=== PATIENT | female | born 1990 | race Caucasian/White ===

== ENCOUNTER 2017-09-11 19:50 | Emergency (ER) | payer SELFPAY ==
[2017-09-11] MEDS ORDERED: Sodium Chloride 0.9% 1,000 ML ONE (20:06)
[2017-09-11] MEDS ORDERED: Morphine 4 MG/ML Carpuject ONE (20:06)
[2017-09-11] MEDS ORDERED: Ondansetron HCl/PF 4 MG/2 ML Vial ONE (20:06)
[2017-09-11] MEDS ORDERED: Promethazine HCl 25 MG/ML VIAL ONE (20:16)
[2017-09-11 20:19] LABS: #Basophils 0.1 thou/uL (0.0-0.2); #Eosinphils 0.2 thou/uL (0.0-0.7); #Lymphocytes 1.9 thou/uL (1.20-3.40); #Monocytes 0.7 thou/uL (0.11-0.59); %Basophils 0.5 % (0.0-1.0); %Eosinophils 1.3 % (0.0-10.0); %Lymphocytes 13.8 % (21.0-51.0); %Neutrophils 79.4 % (42.0-75.0); Hemoglobin 14.7 g/dL (12.0-16.0); Mean Corpuscular HGB CONC 32.5 g/dL (32.0-36.0); Mean Corpuscular Hemoglobin 28.5 pg (27.0-31.0); Mean Corpuscular Volume 87.7 fl (81.0-99.0); Mean Platelet Volume 8.9 fL (7.4-10.4); Platelet Count 304 thou/uL (130-400); RBC Distribution Width 11.7 % (11.5-14.5); Red Blood Cell (RBC) Count 5.14 mill/uL (4.20-5.40); White Blood Cell (WBC) Count 13.9 thou/uL (4.8-10.8)
[2017-09-11 20:27] LABS: Bilirubin Negative (Negative); Blood, Urine Negative (Negative); Clarity Clear (Clear); Glucose, Urine (Dipstick) Negative (Negative); Leukocyte Negative (Negative); Nitrite Negative (Negative); Protein, Urine (Dipstick) Negative (Neg-Trace); Urobilinogen 0.2 mg/dL (0.2-1.0)
[2017-09-11 20:28] LABS: Specific Gravity, Urine 1.006 (1.005-1.030)
[2017-09-11 20:31] LABS: Anion Gap 15 mmol/L (10-20); BUN (Urea Nitrogen) 7 mg/dL (7.0-18.7); Calc. Creatinine Clearance 0 mL/min (70-130); Calcium 10.2 mg/dL (7.8-10.44); Carbon Dioxide 24 mmol/L (22-29); Chloride 105 mmol/L (98-107); Estimated GFR-MDRD 84; Glucose 103 mg/dL (70-105); Potassium 3.8 mmol/L (3.5-5.1); Sodium 140 mmol/L (136-145)
[2017-09-11 20:39] LABS: BHCG - Serum Negative (NEGATIVE); Pregs Control Bar Appear? YES (CONTROL BAR)
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
== END 2017-09-11 21:53 | disposition home or self-care (01) ==
LOC: NAV ERS 19:50
DX: T74.11XA Adult physical abuse, confirmed, initial encounter (principal); S31.159A Open bite of abdominal wall, unspecified quadrant without penetration into peritoneal cavity, initial encounter; S13.9XXA Sprain of joints and ligaments of unspecified parts of neck, initial encounter; S09.90XA Unspecified injury of head, initial encounter; F41.9 Anxiety disorder, unspecified; F32.9 Major depressive disorder, single episode, unspecified; F17.210 Nicotine dependence, cigarettes, uncomplicated; Y04.1XXA Assault by human bite, initial encounter
CPT/HCPCS: 70450; 72125; 80048; 81003; 84703; 85025; 96361; 96374; 96375; J2270; J2405; J2550; J7050

== ENCOUNTER 2017-09-24 21:09 | Emergency (ER) | payer SELFPAY ==
[2017-09-24] MEDS ORDERED: Ketorolac Tromethamine 30 MG/ML VIAL ONE (21:53)
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
[2017-09-25 12:37] LABS: HIV (1/2) Antibody/Antigen Non-Reactive (NonReactive); HIV 1/2 INDEX 0.24 S/CO (<1.00)
== END 2017-09-24 23:04 | disposition home or self-care (01) ==
LOC: NAV ERS 21:09
DX: S39.92XA Unspecified injury of lower back, initial encounter (principal); S29.9XXA Unspecified injury of thorax, initial encounter; B34.9 Viral infection, unspecified; F41.9 Anxiety disorder, unspecified; F32.9 Major depressive disorder, single episode, unspecified; F17.210 Nicotine dependence, cigarettes, uncomplicated; Y04.2XXA Assault by strike against or bumped into by another person, initial encounter
CPT/HCPCS: 87389; 96372; J1885

== ENCOUNTER 2017-10-20 23:12 | Emergency (ER) | payer SELFPAY ==
[2017-10-21] LABS: Bilirubin Negative (Negative); Blood, Urine Trace (Negative); Clarity Clear (Clear); Glucose, Urine (Dipstick) Negative (Negative); Leukocyte Small (Negative); Nitrite Negative (Negative); Protein, Urine (Dipstick) Negative (Neg-Trace); Urobilinogen 0.2 mg/dL (0.2-1.0); pH, Urine 6.5 (5.0-9.0)
[2017-10-21 00:07] LABS: Pregnancy Test - Urine (BHCG) Negative (Negative); Pregu Control Background? CLEAR/WHITE (CLR/WHITE); Pregu Control Bar Appear? YES (CONTROL BAR)
[2017-10-21] MEDS ORDERED: Promethazine HCl 25 MG/ML VIAL ONE (00:07)
[2017-10-21] MEDS ORDERED: Sodium Chloride 0.9% 1,000 ML ONE (00:07)
[2017-10-21 00:09] LABS: Bacteria/HPF None Seen HPF (None Seen); RBC/HPF 0-3 HPF (0-3); Squamous Epithelial 0-3 HPF (0-3); WBC/HPF 0-3 HPF (0-3)
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
== END 2017-10-21 01:30 | disposition home or self-care (01) ==
LOC: NAV ERS 23:12
DX: B34.9 Viral infection, unspecified (principal); K52.9 Noninfective gastroenteritis and colitis, unspecified; F41.9 Anxiety disorder, unspecified; F31.9 Bipolar disorder, unspecified; F17.210 Nicotine dependence, cigarettes, uncomplicated
CPT/HCPCS: 71046; 81003; 81015; 81025; 96361; 96374; J2550; J7050

== ENCOUNTER 2017-10-31 12:23 | Emergency (ER) | payer MEDICAID, SELFPAY ==
[2017-10-31] MEDS ORDERED: AMOXicillin 250 MG CAP ONE (13:00)
[2017-10-31] MEDS ORDERED: traMADol HCl 50 MG TAB ONE (13:00)
== END 2017-10-31 13:16 | disposition home or self-care (01) ==
LOC: NAV ERS 12:23
DX: K02.9 Dental caries, unspecified (principal); F41.9 Anxiety disorder, unspecified; F31.9 Bipolar disorder, unspecified; F17.210 Nicotine dependence, cigarettes, uncomplicated
CPT/HCPCS: 99282

== ENCOUNTER 2018-04-26 08:25 | Emergency (ER) | payer MEDICAID, OTHER | END 2018-04-26 09:30 | disposition home or self-care (01) | LOC: NAV ERS 08:25 | DX: O99.512 Diseases of the respiratory system complicating pregnancy, second trimester (principal); J02.0 Streptococcal pharyngitis; O99.612 Diseases of the digestive system complicating pregnancy, second trimester; K08.89 Other specified disorders of teeth and supporting structures; O99.342 Other mental disorders complicating pregnancy, second trimester; F31.9 Bipolar disorder, unspecified; F41.9 Anxiety disorder, unspecified; O99.332 Smoking (tobacco) complicating pregnancy, second trimester; F17.210 Nicotine dependence, cigarettes, uncomplicated; Z79.899 Other long term (current) drug therapy; Z3A.22 22 weeks gestation of pregnancy | CPT/HCPCS: 87081; 87430; 99283 ==

== ENCOUNTER 2018-09-09 09:22 | Emergency (ER) | payer OTHER ==
[2018-09-09] MEDS ORDERED: Promethazine HCl 25 MG/ML VIAL ONE (09:43)
[2018-09-09] MEDS ORDERED: Fentanyl 100 MCG/2 ML VIAL ONE ×2 (09:43→12:19)
[2018-09-09] MEDS ORDERED: Sodium Chloride 0.9% 1,000 ML ONE (09:55)
[2018-09-09] MEDS ORDERED: Clindamycin 300 MG/2 ML VIAL ONE (10:07)
[2018-09-09 10:10] LABS: #Basophils 0.1 thou/uL (0.0-0.2); #Eosinphils 0.3 thou/uL (0.0-0.7); #Lymphocytes 1.9 thou/uL (1.20-3.40); #Monocytes 1.2 thou/uL (0.11-0.59); #Neutrophils 12.4 thou/uL (1.40-6.50); %Basophils 0.5 % (0.0-1.0); %Eosinophils 1.8 % (0.0-10.0); %Monocytes 7.3 % (0.0-10.0); %Neutrophils 78.4 % (42.0-75.0); Hemoglobin 13.2 g/dL (12.0-16.0); Mean Corpuscular HGB CONC 33.6 g/dL (32.0-36.0); Mean Corpuscular Volume 86.4 fL (78.0-98.0); Mean Platelet Volume 7.9 fL (7.4-10.4); Platelet Count 326 thou/uL (130-400); RBC Distribution Width 10.9 % (11.5-14.5); Red Blood Cell (RBC) Count 4.56 mill/uL (4.20-5.40); White Blood Cell (WBC) Count 15.8 thou/uL (4.8-10.8)
[2018-09-09 10:14] LABS: Anion Gap 14 mmol/L (10-20); BUN (Urea Nitrogen) 9 mg/dL (7.0-18.7); Calc. Creatinine Clearance 0 mL/min (70-130); Calcium 9.7 mg/dL (7.8-10.44); Carbon Dioxide 23 mmol/L (22-29); Chloride 106 mmol/L (98-107); Estimated GFR-MDRD 84; Glucose 104 mg/dL (70-105); Potassium 3.8 mmol/L (3.5-5.1); Sodium 139 mmol/L (136-145)
[2018-09-09] MEDS ORDERED: Bupivacaine 0.5% 10 ML VIAL ONE (11:02)
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
== END 2018-09-09 12:40 | disposition short-term general hospital (02) ==
LOC: NAV ERS 09:22
DX: K12.2 Cellulitis and abscess of mouth (principal); K02.9 Dental caries, unspecified; F41.9 Anxiety disorder, unspecified; F31.9 Bipolar disorder, unspecified; F17.210 Nicotine dependence, cigarettes, uncomplicated; Z79.899 Other long term (current) drug therapy
CPT/HCPCS: 70487; 80048; 85025; 96365; 96367; 96375; 96376; 99406; J2550; J3010; J3490; J7050